=== PATIENT | male | born 1940 | race African-American/Black ===

== ENCOUNTER 2017-12-21 12:32 | Emergency (ER) | payer OTHER ==
[2017-12-21 12:55] LABS: ADD MAN DIFF? NO
[2017-12-21 12:58] LABS: BASO % 1 % (0-3); EOS % 1 % (0-3); HEMATOCRIT 43.4 % (39.0-53.0); HEMOGLOBIN 14.8 g/dL (13.0-17.5); LYMPH # 0.9 x10^3/uL (1.0-4.8); LYMPH % 16 % (24-48); MEAN CORPUSCULAR HEMOGLOBIN 31 pg (25-35); MEAN CORPUSCULAR HGB CONC 34 g/dL (31-37); MEAN CORPUSCULAR VOLUME 90 fL (79-100); MONO # 0.8 x10^3/uL (0.0-1.1); MONO % 13 % (0-9); NEUT # 4.1 x10^3uL (1.8-7.7); NEUT % 69 % (31-73); PLATELET COUNT 352 x10^3/uL (140-400); RED CELL DISTRIBUTION WIDTH 14.3 % (11.5-14.5); WHITE BLOOD COUNT 5.9 x10^3/uL (4.0-11.0)
[2017-12-21 13:11] LABS: ANION GAP 12 (6-14); BLOOD UREA NITROGEN 16 mg/dL (8-26); BUN/CREATININE RATIO 12 (6-20); CALCIUM 9.2 mg/dL (8.5-10.1); CARBON DIOXIDE 24 mmol/L (21-32); CHLORIDE 97 mmol/L (98-107); CREATININE 1.3 mg/dL (0.7-1.3); GFR 64.9; GLUCOSE 117 mg/dL (70-99); SODIUM 133 mmol/L (136-145)
[2017-12-21 13:12] LABS: INR 1.1 (0.8-1.1); PARTIAL THROMBOPLASTIN TIME 36 SEC (24-38); PROTHROMBIN TIME PATIENT 13.9 SEC (11.7-14.0)
[2017-12-21 13:17] LABS: ALBUMIN/GLOBULIN RATIO 0.9 (1.0-1.7); ALK PHOS 120 U/L (46-116); ALT (SGPT) 41 U/L (16-63); AST (SGOT) 44 U/L (15-37); TOTAL BILIRUBIN 0.7 mg/dL (0.2-1.0); TOTAL PROTEIN 8.6 g/dL (6.4-8.2)
[2017-12-21 13:29] LABS: BILIRUBIN,URINE SMALL (NEG); CLARITY,URINE CLEAR; COLOR,URINE AMBER; GLUCOSE,URINE NEGATIVE (NEG); NITRITE,URINE NEGATIVE (NEG); PROTEIN,URINE 100 mg/dL (NEG-TRACE)
[2017-12-21 13:40] LABS: BACTERIA,URINE 0 /HPF (0-FEW); HYALINE CASTS, URINE MANY /HPF; RBC,URINE 0 /HPF (0-2)
[2017-12-21 14:10] LABS: FECAL OB PT POSITIVE (NEG); NEG OBC FOB NEG; POS OBC FOB POS
== END 2017-12-21 15:49 | disposition home or self-care (01) ==
LOC: ER 12:32
DX: K64.8 Other hemorrhoids (principal); F10.10 Alcohol abuse, uncomplicated
CPT/HCPCS: 36415; 80053; 81001; 82274; 85025; 85610; 85730; 86850; 86900; 86901; 99284

== ENCOUNTER 2018-03-09 16:02 | Emergency (ER) | payer OTHER ==
[~2018-03-09] VITALS: Ht 175.3 cm; Wt 68.0 kg
[2018-03-09] MEDS ORDERED: NAPROXEN 500 MG TABLET PO STA (16:22)
[2018-03-09] MEDS ORDERED: METH4TAB2 PO (16:29)
[2018-03-09] MEDS ORDERED: NAPR-695 PO (16:29)
[2018-03-09] MEDS ORDERED: DIAZ5TAB PO (16:29)
[2018-03-09] MEDS ORDERED: HYDR-971 PO (16:29)
--- NOTE | 2018-03-09 16:30 | PHYS DOC ---
Past Medical History Past Medical History: Other Additional Past Medical Histor: HEMMORHOIDS Past Surgical History: Other Additional Past Surgical Histo: HEMMORHOIDS Alcohol Use: Heavy Drug Use: None Adult General Chief Complaint Chief Complaint: LOWER BACK PAIN OR INJURY HPI HPI Patient is a 77 year old male with no significant medical history who presents today complaining of 9 out of 10 bilateral low back pain described as sharp and intermittent that has been going on for the last 2 days. Patient states the pain is worse when he is mowing lawns. 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 Patient denies any known injury. Denies any pain radiating to bilateral lower extremities, denies any loss of bowel bladder function. He states he has tried icy hot with slight relief. Review of Systems Review of Systems Constitutional: Denies fever or chills [] GI: Denies abdominal pain, nausea, vomiting, bloody stools or diarrhea [] : Denies dysuria or hematuria [] Musculoskeletal: Reports bilateral low back pain. Integument: Denies rash or skin lesions [] Neurologic: Denies headache, focal weakness or sensory changes [] All other systems were reviewed and found to be within normal limits, except as documented in this note. Current Medications Current Medications Current Medications Medications (Trade) Dose Ordered Sig/Elizabet Start Time Stop Time Status Last Admin Dose Admin Acetaminophen/ Hydrocodone Bitart (Lortab 5/325) 2 tab 1X ONCE 03/09/18 16:45 03/09/18 16:46 DC 03/09/18 16:34 2 TAB Diazepam (Valium) 5 mg 1X ONCE 03/09/18 16:45 03/09/18 16:46 DC 03/09/18 16:34 5 MG Naproxen (Naprosyn) 500 mg 1X STAT 03/09/18 16:22 03/09/18 16:25 DC 03/09/18 16:34 500 MG Allergies Allergies Allergies Coded Allergies Type Severity Reaction Last Updated Verified No Known Drug Allergies 12/21/17 No Physical Exam Physical Exam Constitutional: Well developed, well nourished, no acute distress, non-toxic appearance. [] Abdomen: Bowel sounds normal, soft, no tenderness, no masses, no pulsatile masses. [] Skin: Warm, dry, no erythema, no rash. [] Back: Diffuse paraspinal muscle tenderness bilateral lumbar spine, no midline lumbar spine tenderness, no CVA tenderness. Negative bilateral straight leg raises Extremities: No tenderness, no cyanosis, no clubbing, ROM intact, no edema. [] Neurologic: Alert and oriented X 3, normal motor function, normal sensory function, no focal deficits noted. [] Psychologic: Affect normal, judgement normal, mood normal. [] Current Patient Data Vital Signs Vital Signs Date Time Temp Pulse Resp B/P (MAP) Pulse Ox O2 Delivery O2 Flow Rate FiO2 03/09/18 16:37 76 20 162/98 (119) 96 Room Air 03/09/18 16:02 98.0 98.0 EKG EKG [] Radiology/Procedures Radiology/Procedures [] Course & Med Decision Making Course & Med Decision Making Pertinent Labs and Imaging studies reviewed. (See chart for details) This is a 77-year-old male patient presenting to the ED today with bilateral low back pain, no known injury. Will be discharged with 10 tablets of [place], Valium and naproxen. Also given Medrol Dosepak. Follow-up with PCP in one week. Instructed to avoid lawnmowing until his pain is gone. Instructed to apply heat to his lower back. Provided return precautions. Discharged in stable condition. He has no cauda equina syndrome symptoms. Staff Physician Addendum: I was working in the ER during the course of this patient's visit. I was available for consultation as needed, but I was not directly involved in the care of this patient. Dragon Disclaimer Dragon Disclaimer This electronic medical record was generated, in whole or in part, using a voice recognition dictation system. Departure Departure Impression: Primary Impression: Low back pain Disposition: 01 HOME, SELF-CARE Condition: STABLE Referrals: NO PCP (PCP) Follow-up in one week with your doctor Patient Instructions: Back Pain, Adult Additional Instructions: You were evaluated in the emergency room for low back pain. We sent you home with medications, take them as needed for pain. Do not drive or operate machinery on the hydrocodone/Valium, follow-up with your doctor in the course of this week or next week. Scripts Naproxen (NAPROXEN) 375 Mg Tablet 1 TAB PO BID, #10 TAB 0 Refills Prov: MUTUNGA,CASS VENEER JOINTER OFFBEARER 03/09/18 Diazepam (VALIUM) 5 Mg Tablet 5 MG PO TID, #10 TAB Prov: MUTUNGA,CASS ILANA 03/09/18 Methylprednisolone (MEDROL) 4 Mg Tab.ds.pk 1 PKG PO UD, #1 PKG Prov: CASS LIMA VENEER [employer]INTER [employer]ER 03/09/18 Hydrocodone/Apap 5-325 (NORCO 5-325 TABLET) 1 Each Tablet 1 TAB PO Q6HRS, #10 TAB Prov: CASS LIMA VENEER [employer]INTER [employer]ER 03/09/18 Problem Qualifiers Primary Impression: Low back pain Chronicity: acute Back pain laterality: bilateral Sciatica presence: without sciatica Qualified Codes: M54.5 - Low back pain CASS LIMA ILANA Mar 09, 2018 16:30 ALINE REDMAN MD Mar 09, 2018 17:40
[2018-03-09 16:37] VITALS: BP 162/98
[2018-03-09] MEDS ORDERED: HYDROcodone/APAP 5/325MG 1 TAB TABLET PO ONE (16:45)
[2018-03-09] MEDS ORDERED: diazePAM 5 MG TABLET PO ONE (16:45)
== END 2018-03-09 17:00 | disposition home or self-care (01) ==
LOC: ER 16:02
DX: M54.5 Low back pain (principal); F10.20 Alcohol dependence, uncomplicated; Y90.9 Presence of alcohol in blood, level not specified
CPT/HCPCS: 99284